=== PATIENT | female | born 1960 | race Caucasian/White ===

== ENCOUNTER 2018-08-03 05:03 | Emergency (ER) | payer SELFPAY ==
[2018-08-03 05:04] VITALS: BP 170/98; PULSE 67; RESP 18; TEMP 36.6; O2SAT 97; BMI 38.0
--- NOTE | 2018-08-03 05:16 | CT_ITS ---
HISTORY: FALL,HIT BACK OF HEAD,DENIES LOCHX:HTN TECHNIQUE: Multiple axial images were obtained of the brain without intravenous contrast. A radiation dose optimization technique was used for this scan. COMPARISON: None FINDINGS: # of images incl. paperwork: 238 Left parietal-occipital scalp contusion. Cerebellar tonsils are ectopic by 4 mm. Visualized portions of the paranasal sinuses and mastoid air cells are free of disease. Brain volume is normal. Yoo-white differentiation is preserved. No hydrocephalus. No acute ischemia. No acute intracranial hemorrhage. 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 Left parietal-occipital scalp contusion. No perceived intracranial hemorrhage or skull fracture ASPECT 10. Individualized dose optimization techniques were used for this CT. at 2381 Reported and signed by: Vishal Maldonado MD Electronically Signed: Vishal Maldonado MD at 5:40 EDT Tel , Service support ,
--- NOTE | 2018-08-03 05:48 | ED.VISSUMM ---
- ER Visit Summary Date of Service: 08/03/18 Chief Complaint: Head injury History of Present Illness: The patient is a 57 F who slipped and fell getting out of a camper on wet steps. She fell onto her buttocks and back and also hit the back of her head. She complains of pain at the site of the head injury. She denies any nausea or vomiting. There was no loss of consciousness. She denies any amnesia. She is not anticoagulated. She denies any chest pain shortness of breath abdominal pain or injury to extremities. Physical Examination: Afebrile blood pressure 170/98 vitals otherwise unremarkable Patient does have an occipital scalp hematoma Heart regular rate and rhythm Lungs clear Abdomen soft No midline cervical tenderness GCS of 15 with no focal or lateralizing neurological deficits alert and oriented x3 Test Results: CT the head shows cerebellar tonsillar ectopia as well as a left parietal occipital scalp contusion Emergency Department Course and Treatment: Patient was advised on symptoms of concussion. She was advised on brain rest. She understands return for new or worsening symptoms and was instructed on specific signs and symptoms to monitor for and conditions which should prompt return here to the emergency department for reevaluation. All questions answered bedside. Patient discharged. Treatment Plan: [] Disposition: Discharge Impression: Head injury Scalp hematoma This note was generated with [employer] dictation software. It may contain incorrect words, spelling, and punctuation that were not noted in review of the chart prior to signing ED Disposition - Plan for ED Patient: Referrals: Roscoe Moraes [Primary Care Provider] -
--- NOTE | 2018-08-03 05:50 | ED.DEP ---
ED Disposition - Plan for ED Patient: Instructions: ED Contusion Scalp, ED Head Injury Closed Referrals: Roscoe Moraes [Primary Care Provider] -
[2018-08-03 05:56] VITALS: BP 162/72; PULSE 80; RESP 16; O2SAT 97
== END 2018-08-03 05:56 | disposition home or self-care (01) ==
LOC: ED 05:35
PROVIDERS: Emergency Provider Emergency Medicine; Family Provider Family Medicine; PCP Family Medicine
DX: S00.03XA Contusion of scalp, initial encounter (principal); R40.2410 Glasgow coma scale score 13-15, unspecified time; W01.0XXA Fall on same level from slipping, tripping and stumbling without subsequent striking against object, initial encounter; Y93.9 Activity, unspecified; Y92.9 Unspecified place or not applicable; I10 Essential (primary) hypertension; Z79.899 Other long term (current) drug therapy
CPT/HCPCS: 70450; 99282

== ENCOUNTER 2019-08-30 09:50 | Observation (INO) | payer OTHER, SELFPAY ==
[2019-08-30] VITALS (13 sets, daily range): BP systolic 110–141; BP diastolic 68–87; PULSE 65–73; RESP 11–29; TEMP 36.2–37.1; O2SAT 92–97; BMI 36.1; BMI 36.0
--- NOTE | 2019-08-30 10:30 | EKG12_ITS ---
Test Reason : NEURO Blood Pressure : / mmHG Vent. Rate : 075 BPM Atrial Rate : 075 BPM P-R Int : 160 ms QRS Dur : 092 ms QT Int : 408 ms P-R-T Axes : 062 031 015 degrees QTc Int : 455 ms Normal sinus rhythm T wave abnormality, consider anterior ischemia Abnormal ECG Confirmed by SUDHEER ROBERT, CASA ([id number]), editorial clerk SILVIO PAIGE ([id number]) on 09/02/2019 8:26:37 AM Referred By: FAM Confirmed By:CASA WILLARD MD
--- NOTE | 2019-08-30 10:31 | CT_ITS ---
STUDY: CTA HEAD AND NECK WITH CONTRAST REASON FOR EXAM: Female, 58 years old. STROKE RADIATION DOSAGE (If Supplied By Facility): CTDIvol = ( 17.78 ) mGy, DLP = ( 643.16 ) mGycm TECHNIQUE: CT angiography was performed with a multi-detector CT scanner. Data acquisition was obtained from the skull base through the vertex following intravenous administration of 100 CC ISOVUE 370. MIP images were reconstructed from the axial data set. Post-processing of the angiographic images was performed, with multiplanar reformation and 3D reconstruction. Individualized dose optimization techniques were used for this CT. COMPARISON: No relevant priors. FINDINGS: Normal bilateral petrous carotid arteries. Normal right cavernous carotid artery with a normal supraclinoid bifurcation. Normal left cavernous carotid artery with a normal supraclinoid bifurcation. Normal right A1 segments of the anterior cerebral artery. Normal left A1 segments of the anterior cerebral artery. Normal intact anterior communicating artery (ACOM). Normal bilateral A2 segments of the anterior cerebral arteries. Normal right M1 and M2 segments of the middle cerebral arteries, with a normal M1 bifurcation. Normal left M1 and M2 segments of the middle cerebral arteries, with a normal M1 bifurcation. Normal right posterior communicating artery (PCOM). Normal left posterior communicating artery (PCOM). Normal bilateral vertebral arteries. Normal basilar artery with a normal basilar bifurcation. The visualized bilateral superior cerebellar (SCA) arteries are normal. Normal bilateral P1, P2 and visualized P3 segments of the posterior cerebral arteries. There is no demonstrated aneurysm of the [place]. There is no demonstrated abnormality of the visualized brain. AORTIC ARCH: Normal visualized aortic arch. Normal origins of the brachiocephalic, left common carotid, and left subclavian arteries. RIGHT CAROTID ARTERIES: Normal right common carotid artery (CCA). Normal right common carotid bulb. Normal origin of the right internal carotid (ICA) artery without a hemodynamically significant stenosis. Normal visualized cervical portion of the right internal carotid artery. Normal origin of the right external carotid artery (ECA). LEFT CAROTID ARTERIES: Normal left common carotid artery (CCA). Normal left common carotid bulb. Normal origin of the left internal carotid (ICA) artery without a hemodynamically significant stenosis. Normal visualized cervical portion of the left internal carotid artery. Normal origin of the left external carotid artery (ECA). VERTEBRAL ARTERIES: Normal bilateral vertebral arteries. CT/CTA Head AND Neck W/ Contrast IMPRESSION: Normal CTA Head and neck with contrast. N.B. : The above information has been verbally conveyed by Hernando Roy to [facility] on 08/30/2019 10:50:13 (ET). Electronically Signed: Hernando Roy, at 10:51 EDT , Service support ,
--- NOTE | 2019-08-30 10:34 | CT_ITS ---
STUDY: CT BRAIN WITHOUT CONTRAST REASON FOR EXAM: Female, 58 years old. STROKE, FACIAL DROOP RADIATION DOSAGE (If Supplied By Facility): CTDIvol = ( 44.99 ) mGy, DLP = ( 678.0 ) mGycm TECHNIQUE: Transaxial CT imaging of the brain was performed without administration of intravenous contrast material. Individualized dose optimization techniques were used for this CT. COMPARISON: Comparison is made with prior study dated August 03, 2018. FINDINGS: Normal soft tissue structures. Normal calvarium. Normal size ventricles and extra-axial spaces for the patient''s age. Normal white matter tracts of the cerebral hemispheres. Normal basal ganglia and thalami. Normal brainstem. Normal cerebellum. There is no intracranial hemorrhage. There are no findings of an acute ischemic infarction. Normal visualized paranasal sinuses. CT/Brain/Head without Contrast IMPRESSION: Normal unenhanced CT scan of the brain. N.B. : The above information has been verbally conveyed by Hernando Roy to [facility] on 08/30/2019 10:47:06 (ET). Electronically Signed: Hernando Roy, at 10:49 EDT , Service support ,
--- NOTE | 2019-08-30 10:36 | ED.DCSUM_ITS ---
History of Present Illness Chief Complaint: Neuro S/Sx Informant: Patient, Family Onset: Today, Yesterday Current Severity: Moderate Maximum Severity: Moderate Narrative: 58-year-old female presents with facial droop on the left. She states that she felt a little off last night before bed. Upon awakening this morning at 0 700 she noticed that she had a facial droop. She had trouble drinking liquids. She went to urgent care who felt that she probably had a Baron's palsy but wanted her to be seen in the ER just in case. She has no visual loss. She has no symptoms in her arms or legs. She is not dizzy or lightheaded. Her mentation is clear. Prior similar symptoms: No Recent Illness/Hospitalization: No Past Medical History - Allergies and Home Meds Allergies/Adverse Reactions: Allergies No Known Allergies Allergy (Verified 08/30/19 09:54) Past Medical History: - - hypertension Smoking Status: Never smoker - Family History Maternal Family History: Reports: No pertinent history Paternal Family History: Reports: No pertinent history Review of Systems General: Denies: Chills, Fever Eyes: Denies: Visual changes - left, Blurred vision - left ENT: Denies: Bilateral ear pain, Left ear pain Cardiovascular: Denies: Chest pain Respiratory: Denies: Dyspnea, Cough Gastrointestinal: Denies: Abdominal pain, Nausea, Vomiting Musculoskeletal: Denies: Myalgias, Arthralgias Skin: Reports: Rash - reolved Neurological: Reports: -, - - Facial droop on the left Physical Exam Vital Signs/Narrative: Vital Signs Temp Pulse Resp BP Pulse Ox 08/30/19 09:52 97.2 F L 68 18 141/81 H 97 Inital Vital Signs reviewed: Yes General: Well nourished, Well developed, No Acute Distress Head: Normocephalic, Atraumatic Eyes: Perrl, EOMI ENT: Moist mucous membranes Cardiovascular: Regular rate, Regular rhythm Respiratory: No distress, CTA bilaterally Abdomen: Soft, Nontender Extremities: Nontender Skin: Normal color Neurological: Alert, Oriented x3, Left side facial droop, - - NIH = 2 Psychological: Normal affect Diagnostic/Tx/Re-eval Chest X-Ray - ED: [address] brain: Negative for acute process. CTA head and neck negative for acute process. - Medical Decision Making Presents with left-sided facial droop. Last known well was the evening of 4. She has no signs or symptoms in her extremities. Her mentation is clear. Patient is not affected. On exam she does have left-sided facial droop without sparing of the forehead. She had CT brain which was normal. Her EKG is sinus rhythm without signs of ischemia. She is not having any chest pain. Chest x- ray is normal. Blood work within normal limits. performed tele-stroke and recommended admission for MRI. Hospitalist was notified. Patient passed swallow evaluation and had aspirin in the ED. Patient stable for the medical floor. ED Disposition - Plan for ED Patient: Disposition: Acute Care Hospital [facility] Diagnosis: Stroke
--- NOTE | 2019-08-30 10:47 | CM.ED ---
Social Work Responding to stroke alert. Patient family present. Support provided. Aundrea FLOR, SIXTO
--- NOTE | 2019-08-30 10:50 | RAD_ITS ---
STUDY: X-RAY CHEST REASON FOR EXAM: Female, 58 years old. Pt states facial droop started today TECHNIQUE: Single AP portable view of the chest. COMPARISON: Comparison is made with prior study dated September 02, 2009. FINDINGS: EKG electrodes are seen. The lungs are clear and expanded. There is no demonstrated pleural abnormality. Normal size heart. Normal mediastinum and rosa. Normal visualized pulmonary arteries. Normal visualized aortic arch and descending thoracic aorta. Normal visualized thoracic spine. Normal visualized ribs, clavicles, and shoulders. There is no demonstrated abnormality of the visualized soft tissue structures of the upper abdomen. RAD/Chest 1 View IMPRESSION: Normal x-ray examination of the chest. Electronically Signed: Hernando Roy, at 11:41 EDT , Service support ,
[2019-08-30 11:01] LABS: Absolute Lymphocyte Count 0.99 X10^3/uL (0.83-4.51); Absolute Neutrophil Count 4.6 X10^3/uL (2.0-7.7); Basophil# 0.02 X10^3/uL; Basophil% 0.3 % (0-1); Eosinophils% 1.7 % (0-5); Hematocrit 35.5 % (37-47); Lymphocyte # 0.99 X10^3/ul (4.0); Lymphocyte % 16.4 % (19-41); Mean Corpuscular Hgb 29.6 pg (27.0-32.0); Mean Corpuscular Volume 95.4 fL (81-99); Mean Platelet Vol. 10.4 fl (6.2-12.0); Monocyte# 0.28 X10^3/uL; Monocyte% 4.6 % (0-10); NRBC Flagged by Analyzer 0 % (0-5); Neutrophil # 4.64 X10^3/uL (2.7-7.7); Neutrophil % 76.7 % (47-70); Platelet Count 159 K/mm3 (150-450); RBC Distribution Width SD 48.8 fl (35.1-43.9); Red Blood Count 3.72 M/mm3 (4.2-5.4); White Blood Count 6.1 K/mm3 (4.4-11.0)
[2019-08-30 11:09] LABS: International Normalized Ratio 1.1; Partial Thromboplast Time 29.4 Seconds (24.1-36.2); Prothrombin Time (Protime)PT. 13.8 SECONDS (11.7-14.9)
[2019-08-30 11:16] LABS: Bedside Glucose 92 mg/dL (70-110)
[2019-08-30] MEDS: Aspirin 81 MG TAB.CHEW 324 MG PO (11:17)
[2019-08-30 11:22] LABS: Anion Gap 3 (5-15); BUN 14 mg/dL (7-18); BUN/Creat Ratio 19.6 RATIO (10-20); Calcium,Total 8.1 mg/dL (8.5-10.1); Chloride 107 mmol/L (98-107); Creatinine, Serum 0.72 mg/dL (0.55-1.02); EST Glomerular Filtration Rate 89 mL/min (>60); Est Glom Filt Rate - Afr Amer 108 mL/min (>60); Estimated Creatinine Clearance 65.05 ml/min; Glucose 84 mg/dL (74-106); Potassium 3.9 mmol/L (3.5-5.1); Sodium Level 138 mmol/L (136-145)
--- NOTE | 2019-08-30 11:58 | HP.PCM_ITS ---
Problem List (1) Anxiety Status: Chronic (2) Hypertension Status: Chronic History of Present Illness Date of Admission: 08/30/19 Chief Complaint: Left facial droop. The patient is a 58 year old F with past medical history as mentioned above presented to the emergency room because of left facial droop. Patient mentioned that last night, she felt that her face not feeling right on the left side. She woke up this morning and she mentioned that when she looked at the mirror, she noticed that that the left side of her face is drooping and not going up when she smiles and she was not able to get the words out correctly. She mentioned that she had trouble drinking liquids as well. She reported associated left- sided headache, mild headache. She denied blurred vision, vision loss, numbness or tingling, denied focal arm or leg weakness. She denied ear symptoms. Today, she went to urgent care and she was informed that probably she has Baron's palsy but was instructed to come to the emergency department. Patient's mentioned that she had a history of mitral valve prolapse. The patient herself mentioned that she had cardiac catheterization years ago that was done for irregular heartbeats, no interventions performed at that time. In the emergency department, her vital signs are stable. Her NIH stroke scale was 2. Her routine blood work was unremarkable. SOC tele-neuro consult obtained. CT scan brain showed no acute infarct or hemorrhage. CTA of the head and neck was normal. EKG revealed normal sinus rhythm, normal MA interval, QTC of 455 ms, low voltage, no acute changes. Chest x-ray showed no acute findings. She is being admitted for evaluation for possible stroke. Past Medical History Past Medical History (Chronic Problems): Chronic Problems Nephrolithiasis (Chronic) Anxiety (Chronic) Hypertension (Chronic) Allergies No Known Allergies Allergy (Verified 08/30/19 09:54) Home Medications: Ambulatory Orders Medication Instructions Recorded Atenolol [Tenormin] 100 mg PO DAILY 08/03/18 Lisinopril 5 mg PO DAILY 08/03/18 Paroxetine HCl [Paxil] 10 mg PO DAILY 08/03/18 Surgical History: - - Kidney stone removal. 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 Lives: Spouse/ Significant Other Smoking Status: Never smoker Alcohol: None Drugs: None - *Family History Maternal History Items: No pertinent history Paternal History Items: No pertinent history Review of Systems Constitutional: Denies: Anorexia, Chills, Fever, Weakness Eyes: Denies: Blurred vision, Double vision, Drainage, Vision Change HEENT: Denies: Difficulty Hearing, Dysphasia, Eye Pain, Nasal Congestion, Sore Throat Cardiovascular: Denies: Chest Pain, Chest Pressure, Edema, Heaviness, Light Headedness, Palpitations, Syncope Respiratory: Denies: Cough, Pleuritic Pain, Shortness of Breath, Sputum production, Wheezing Gastrointestinal: Denies: Abdominal Pain, Constipation, Diarrhea, Nausea, Vomiting Genitourinary: Denies: Dysuria, Frequency, Hematuria Musculoskeletal: Denies: Arm Pain, Back Pain, Foot Pain Skin: Denies: Dryness, Rash Neurological: Reports: Change in Speech, Headaches. Denies: Balance problems, Blurred vision, Confusion, Numbness, Tingling Psychiatric: Reports: Anxiety. Denies: Depression Endocrine: Denies: Change in Body Habitus, Polydipsia, Polyuria VTE Information - Inpt Only VTE Present on Admission: No VTE Mechan Device Prophylaxis: None VTE Pharm Prophylaxis ordered?: Yes - Physical Exam Vitals/I&O's: Vital Signs Temp Pulse Resp BP Pulse Ox 98.7 F 65 16 110/82 H 95 08/30/19 11:48 08/30/19 11:48 08/30/19 11:48 08/30/19 11:48 08/30/19 11:48 Oxygen Delivery Method Room Air Weight: 191 lb 5.78 oz Body Mass Index (BMI) 36.1 Finger Stick Blood Glucose 92 General: Alert, Oriented x3, Cooperative, No apparent distress HEENT: Atraumatic, PERRLA, EOMI, Normocephalic Oral: Moist Mucosa, No Gingival or Mucosal Lesions/ Ulcerations Neck: Supple, No JVD, Negative Carotid Bruits, Trachea Midline, Thyroid Normal Size and Texture Lungs: Clear to auscultation, Normal air movement, No rhonchi, No wheeze, No rales Cardiovascular: Regular rate, Regular Rhythm, Normal S1, Normal S2, No murmurs, PMI Normal Abdomen: Bowel Sounds Present, Soft, Non Tender, Non-Distended, No Hepato- splenomegaly Extremities: No clubbing, No cyanosis, No edema Skin: No rashes, No breakdown Lymphatic: No Cervical, Supraclavicular, or Inguinal Adenopathy Neurological: Cranial nerves II-XII grossly intact, Motor Exam 5/5 strength throughout, Facial Droop - Left facial droop. Psych/Mental Status: Normal Affect, Appropriate, Alert and oriented to time, place, person, mood and affect Laboratory Results 08/30/19 10:18: POC Glucose 92 08/30/19 10:50: WBC 6.1, RBC 3.72 L, Hgb 11.0 L, Hct 35.5 L, MCV 95.4, MCH 29.6, MCHC 31.0 L, RDW Std Deviation 48.8 H, RDW Coeff of Daniel 14.0, Plt Count 159, MPV 10.4, Immature Gran % (Auto) 0.300, Neut % (Auto) 76.7 H, Lymph % (Auto) 16.4 L, Baker % (Auto) 4.6, Eos % (Auto) 1.7, Baso % (Auto) 0.3, Absolute Neuts (auto) 4.6, Absolute Lymphs (auto) 0.99, Nucleated RBC % 0 08/30/19 10:50: PT 13.8, INR 1.1, APTT 29.4 08/30/19 10:50: Sodium 138, Potassium 3.9, Chloride 107, Carbon Dioxide 28.0, An ion Gap 3 L, BUN 14, Creatinine 0.72, Estim Creat Clear Calc 65.05, Est GFR (MDRD) Af Amer 108, Est GFR (MDRD) Non-Af 89, BUN/Creatinine Ratio 19.6, Glucose 84, Calcium 8.1 L, Troponin I < 0.015 Clinical Impression(s) from Imaging Studies Head/Neck CTA 08/30/19 10:31 IMPRESSION: Normal CTA Head and neck with contrast. N.B. : The above information has been verbally conveyed by Hernando Roy to SPENCER NUNO on 08/30/2019 10:50:13 (ET). Electronically Signed: Hernando Roy, at 10:51 EDT , Service support , ADDENDUM: 08/30/19 1058 IMPRESSION: Normal CTA Head and neck with contrast. N.B. : The above information has been verbally conveyed by Hernando Roy to [facility] on 08/30/2019 10:50:13 (ET). Electronically Signed: Hernando Roy, at 10:51 EDT , Service support , Brain CT 08/30/19 10:34 IMPRESSION: Normal unenhanced CT scan of the brain. N.B. : The above information has been verbally conveyed by Hernando Roy to [facility] on 08/30/2019 10:47:06 (ET). Electronically Signed: Hernando Roy, at 10:49 EDT , Service support , ADDENDUM: 08/30/19 1056 IMPRESSION: Normal unenhanced CT scan of the brain. N.B. : The above information has been verbally conveyed by Hernando Roy to [facility] on 08/30/2019 10:47:06 (ET). Electronically Signed: Hernando Roy, at 10:49 EDT , Service support , Chest X-Ray 08/30/19 10:50 IMPRESSION: Normal x-ray examination of the chest. Electronically Signed: Hernando Roy at 11:41 EDT , Service support , Current Medications Sodium Chloride 1,000 ml/ N/A 1,000 mls @ 260.4 mls/hr IV .Q3H51M [place] Stop: 08/30/19 17:31 Last Admin: 08/30/19 11:09 Dose: 3 ml/kg/hr, 260.4 mls/hr Documented by: Assessment/Plan This is a 58 years old female patient presented to the emergency room because of left facial droop and she is being admitted for evaluation for possible stroke. #1 left facial droop: With minimal slurred speech, back to normal. Differential diagnoses include Baron's palsy versus acute stroke. She had no other focal deficit. CT scan brain and CTA head and neck reviewed as above, was unremarkable. EKG revealed normal sinus rhythm, low voltage, no acute changes. Her vital signs are stable. Plan: Admit to PCU for observation, cardiac monitoring, NIH stroke scale, start baby aspirin, Lipitor, MRI brain, 2D echocardiogram, fasting lipid profile, hemoglobin A1c, TSH, PT OT evaluation and treatment, speech therapy evaluation and treatment. #2 hypertension: Blood pressure stable, continue atenolol and lisinopril. #3 anxiety: Continue Paxil. #4 DVT prophylaxis, subcu Lovenox. This note was generated with [employer] dictation software. It may contain incorrect words, spelling, and punctuation that were not noted in checking the note before signing. OBSV E&M: [id number] Initial observation care L2
--- NOTE | 2019-08-30 14:06 | MRI_ITS ---
STUDY: MRI BRAIN WITHOUT CONTRAST REASON FOR EXAM: Female, 58 years old. Left facial droop TECHNIQUE: Standardized multiplanar fat and water weighted pulse sequences were obtained. COMPARISON: CT head August 30, 2019 FINDINGS: There is no acute infarct. Brain parenchyma is intact without focal lesions, mass effect, extra parenchymal fluid collections, hydrocephalus or herniation. Major vascular flow structures are intact. Craniocervical junction is unremarkable. MRI/Brain without Contrast IMPRESSION: 1. Unremarkable brain MRI. No acute infarct. Electronically Signed: Tank Bull, at 15:49 EDT Tel , Service support ,
--- NOTE | 2019-08-30 14:06 | ECHOD_ITS ---
Reason For Study: TIA/CVA Procedure This was a 2D Doppler, Color Flow transthoracic echocardiogram. Exam performed portable in patient room. Left Ventricle Normal LV size. Left ventricular systolic function is normal. The estimated ejection fraction is 55 %. Stage 1 diastolic dysfunction. No regional wall motion abnormalities noted. Right Ventricle Normal RV size. Normal systolic function. Atria Normal left atrium. Normal right atrium. Bubble contrast study negative for right to left interatrial shunt. Mitral Valve Normal mitral valve. Mild (1+) eccentric mitral valve insufficiency. Tricuspid Valve Normal tricuspid valve. Pulmonic Valve Normal pulmonic valve. Great Vessels Normal aortic root. The pulmonary artery is normal size. Normal inferior vena cava. Pericardium/Pleural No pericardial effusion. Medication Performed a rapid injection of agitated mix of 9 cc saline and 1cc air to assess for atrial septal defect. MMode/2D Measurements & Calculations LVIDd: 5.4 cm IVSd: 0.89 cm Ao root diam: 2.7 cm LVIDs: 3.3 cm LVPWd: 1.0 cm RVDd: 2.8 cm FS: 38.0 % LAV(MOD-bp): 41.9 ml LVAd ap4: 21.4 cm2 SV(MOD-sp4): 35.8 ml LAV(MOD-bp) Indexed: 22.6 ml/m2 EDV(MOD-sp4): 61.3 ml LAV(MOD-sp2): 39.0 ml EDV(sp4-el): 62.3 ml LAV(MOD-sp4): 41.9 ml LVAs ap4: 12.3 cm2 ESV(MOD-sp4): 25.4 ml ESV(sp4-el): 25.9 ml EF(MOD-sp4): 58.5 % EF(sp4-el): 58.5 % SV(sp4-el): 36.5 ml LA A4 area: 16.3 cm2 LA dimension(2D): 3.9 cm RA A4 area: 13.2 cm2 Doppler Measurements & Calculations MV E max yong: 74.7 cm/sec Lat Peak E' Yong: 5.6 cm/sec Med Peak E' Yong: 5.6 cm/sec MV A max yong: 82.5 cm/sec E/E' lat: 13.3 E/E' med: 13.3 MV E/A: 0.91 Ao V2 max: 127.7 cm/sec LV V1 max: 90.9 cm/sec PA V2 max: 73.3 cm/sec Ao max P.5 mmHg LV V1 max P.3 mmHg Ao V2 mean: 98.9 cm/sec Ao mean P.1 mmHg Ao V2 VTI: 29.9 cm Interpretation Summary Normal LV size. Left ventricular systolic function is normal. The estimated ejection fraction is 55 %. Stage 1 diastolic dysfunction. Bubble contrast study negative for right to left interatrial shunt. Ordering Physician: Ivette Pimentel Referring Physician: Roscoe Moraes Performed By: Trena Brewer, VINCENZO, RVT
--- NOTE | 2019-08-30 14:28 | ED.RN ---
VERBAL ORDER TO DC NIH GIVEN BY DR. NUNO TO THIS NURSE. NIH INTERVENTION WAS COMPLETED IN THE WORKLIST AT THAT TIME, NO FURTHER NIH CONDUCTED. CONTINUED TO MONITOR PATIENT STATUS.
[2019-08-30 15:13] LABS: Hemoglobin A1c 5.9 % (3.8-5.6)
[2019-08-30 15:24] LABS: Thyroid Stim Hormone (TSH) 1.23 uIU/mL (0.358-3.74)
[2019-08-30] MEDS: 0.9% Normal Saline 1,000 ML 75 ML IV (15:41)
[2019-08-30] MEDS: Atorvastatin Calcium 80 MG Tablet PO (21:49)
[2019-08-30] MEDS: Acetaminophen 325 MG Tablet 650 MG PO (21:49)
[2019-08-31 03:00] VITALS: PULSE 66
[2019-08-31 03:52] VITALS: BP 120/70; PULSE 68; RESP 18; TEMP 36.6; O2SAT 95
[2019-08-31 07:00] VITALS: PULSE 65
[2019-08-31 08:31] LABS: Cholesterol 126 mg/dL (200); High Density Lipoprotein 28 mg/dL; Triglycerides 198 mg/dL; Very Low Density Lipoprotein 40 mg/dL (5-40)
[2019-08-31 09:50] VITALS: BP 109/71; PULSE 75; RESP 16; TEMP 36.4; O2SAT 97
[2019-08-31] MEDS: 0.9% Saline Lock 10 ML Syringe IV (09:56)
[2019-08-31] MEDS: Atenolol 100 MG Tablet PO (09:58)
[2019-08-31] MEDS: Lisinopril 5 MG Tablet PO (09:58)
[2019-08-31] MEDS: Aspirin 81 MG TAB.CHEW PO (09:58)
[2019-08-31] MEDS: PARoxetine 10 MG Tablet PO (09:59)
--- NOTE | 2019-08-31 10:04 | DCINST_ITS ---
- Discharge Diagnoses Current Active Problems: Current Active and Chronic Problems Stroke (Acute) You will use the following diet at home:: Cardiac Your food should be the consistency of: Regular Discharge Activity: Return to Normal Activity Weight Bearing Status: Weight bearing as tolerated Call your doctor if you observe: Fever of 101 or Higher, Shortness of breath, Dizziness, Fainting spells, Chest pain, Increased palpitations (irregular heartbeat), Uncontrolled pain Instructions: ED [place] Palsy Allergies/Adverse Reactions: Allergies No Known Allergies Allergy (Verified 08/30/19 09:54) Medications to take at Discharge Atenolol [Tenormin] 100 mg PO DAILY 08/03/18 Lisinopril 5 mg PO DAILY 08/03/18 Paroxetine HCl [Paxil] 10 mg PO DAILY 08/03/18 Acyclovir 400 mg PO 5X/DAY #50 tab 08/31/19 Prednisone [Deltasone] 60 mg PO DAILY #30 tab 08/31/19 The following prescriptions were given: Acyclovir 400 mg PO 5X/DAY #50 tab Transmission Status: Pending to [facility]/pharmacy #[id number] Prednisone [Deltasone] 60 mg PO DAILY #30 tab Transmission Status: Pending to [facility]/pharmacy #[id number] Primary Care Physician: Roscoe Moraes MD [Primary Care Provider] - Please follow up with your Primary Care Physician in: 1 week. Test Results: Test results from this visit will be discussed in further detail at your follow- up appointment, if applicable.
[2019-08-31 11:00] VITALS: PULSE 66
[2019-08-31 11:25] VITALS: BP 109/71; PULSE 75; RESP 16; TEMP 36.4; O2SAT 97
[2019-08-31] MEDS: Acyclovir 200 MG Capsule 400 MG PO (11:34)
[2019-08-31] MEDS: predniSONE 20 MG Tablet 80 MG PO (11:34)
--- NOTE | 2019-08-31 11:40 | PCM.DC.SUM ---
Discharge Date and Diagnosis - Problem List Patient Problems: Active and Suspected Problems Baron's palsy (Acute) Date of Admission: 08/30/19 Date of Discharge: 08/31/19 - Primary Discharge Diagnosis Acute Problems: Active Problems #1 Baron's palsy. - Secondary Discharge Diagnosis Chronic Problems: Chronic Problems Nephrolithiasis (Chronic) Anxiety (Chronic) Hypertension (Chronic) Hospital Course and Treatment Imaging Results: Clinical Impression(s) from Imaging Studies Head/Neck CTA 08/30/19 10:31 IMPRESSION: Normal CTA Head and neck with contrast. N.B. : The above information has been verbally conveyed by Hernando Roy to SPENCER NUNO on 08/30/2019 10:50:13 (ET). Electronically Signed: Hernando Roy, at 10:51 EDT , Service support , ADDENDUM: 08/30/19 1058 IMPRESSION: Normal CTA Head and neck with contrast. N.B. : The above information has been verbally conveyed by Hernando Roy to SPENCER NUNO on 08/30/2019 10:50:13 (ET). Electronically Signed: Hernando Roy, at 10:51 EDT , Service support , Brain CT 08/30/19 10:34 IMPRESSION: Normal unenhanced CT scan of the brain. N.B. : The above information has been verbally conveyed by Hernando Roy to SPENCER NUNO on 08/30/2019 10:47:06 (ET). Electronically Signed: Hernando Roy at 10:49 EDT , Service support , ADDENDUM: 08/30/19 1056 IMPRESSION: Normal unenhanced CT scan of the brain. N.B. : The above information has been verbally conveyed by Hernando Roy to SPENCER NUNO on 08/30/2019 10:47:06 (ET). Electronically Signed: Hernando Roy, at 10:49 EDT , Service support , Chest X-Ray 08/30/19 10:50 IMPRESSION: Normal x-ray examination of the chest. Electronically Signed: Hernando Roy, at 11:41 EDT , Service support , Brain MRI 08/30/19 14:06 IMPRESSION: 1. Unremarkable brain MRI. No acute infarct. Electronically Signed: Pricillamaxi Jorgito, at 15:49 EDT Tel , Service support , SOC tele-neurology consult. Procedures: 2-D Echocardiogram, EKG Summary of Care Provided: Patient seen and examined on the day of discharge and appeared to be stable to be discharged home. Still having left facial droop. No new symptoms. Her vital signs are stable. The patient is a 58 year old F presented to the emergency room because of left facial droop. Apart from left lower face facial droop, patient had no other focal deficits. She had no ptosis. Initial CT scan brain without contrast showed no acute infarct or hemorrhage. CTA of the head and neck was normal and showed no evidence of hemodynamically significant vascular disease or stenosis. Patient was admitted, started on aspirin and statins. Her routine blood work was unremarkable. Her EKG revealed normal sinus rhythm without evidence of acute segment changes. Troponin was negative. She had MRI done that showed no evidence of acute infarct or hemorrhage. 2D echocardiogram revealed ejection fraction 55%, stage I diastolic dysfunction, bubble contrast study negative for right to left shunt. Acute stroke ruled out. Her symptoms attributed to Baron's palsy. Patient mentioned that she was bitten by some insects 2 months ago and she had skin rash. Since then, she has been having headaches. She is worried about Lyme disease. I informed the patient that Lyme disease is unlikely at this point but cannot be ruled out. I did ordered Lyme IgG, IgM and Lyme total antibodies which are pending at the time of discharge. At this time, I doubt that her symptoms are due to Lyme disease. Her vital signs were stable throughout admission. She was started on prednisone 60 mg p.o. daily as well as acyclovir 400 mg p.o. 5 times a day. Patient discharged home on prednisone 60 mg p.o. daily for 10 days, acyclovir 400 mg p.o. 5 times a day for 10 days, continued on her previous home medications without any changes, recommended follow-up with PCP in 1 to 2 weeks. Patient Problems: Active and Suspected Problems Baron's palsy (Acute) - Physical Exam Vitals/I&O's: Vital Signs Temp Pulse Resp BP Pulse Ox 97.6 F L 75 16 109/71 97 08/31/19 11:25 08/31/19 11:25 08/31/19 11:25 08/31/19 11:25 08/31/19 11:25 Oxygen Delivery Method Room Air Weight: 190 lb 11.2 oz Body Mass Index (BMI) 36.0 Finger Stick Blood Glucose 92 Intake and Output for Last 24 Hours 08/29/19 08/30/19 08/31/19 23:59 23:59 23:59 Intake Total 1480 / 1480 1120 / 1120 Output Total 1250 / 1250 750 / 750 Balance 230 / 230 370 / 370 General: Alert, Oriented x3, Cooperative, No apparent distress HEENT: Atraumatic, PERRLA, EOMI, Normocephalic Oral: Moist Mucosa, No Gingival or Mucosal Lesions/ Ulcerations Neck: Supple, No JVD, Negative Carotid Bruits, Trachea Midline, Thyroid Normal Size and Texture Lungs: Clear to auscultation, Normal air movement, No rhonchi, No wheeze, No rales Cardiovascular: Regular rate, Regular Rhythm, Normal S1, Normal S2, PMI Normal Abdomen: Bowel Sounds Present, Soft, Non Tender, Non-Distended, No Hepato-splenomegaly Extremities: No clubbing, No cyanosis, No edema Skin: No rashes, No breakdown Lymphatic: No Cervical, Supraclavicular, or Inguinal Adenopathy Neurological: Cranial nerves II-XII grossly intact, Motor Exam 5/5 strength throughout, - - Left facial droop. Psych/Mental Status: Normal Affect, Appropriate Laboratory Results 08/30/19 10:50: Hemoglobin A1c 5.9 H 08/30/19 10:50: TSH 1.23 08/31/19 05:35: Triglycerides 198, Cholesterol 126, LDL Cholesterol 58, VLDL Cholesterol 40, HDL Cholesterol 28 L 08/31/19 09:25: Lyme IgG W Blot Interp Pending, Lyme IgM Ab (WB) Pending, Lyme Total Antibody Pending Current Medications Acetaminophen (Tylenol) 650 mg PO Q6H PRN PRN PRN Reason: Pain Score 1-10/Temp > 100.7 F Last Admin: 08/30/19 21:49 Dose: 650 mg Documented by: Aspirin (Aspirin, Baby) 81 mg PO DAILY@0800 [facility] Last Admin: 08/31/19 09:58 Dose: 81 mg Documented by: Atenolol (Tenormin (Beta Mariaelena)) 100 mg PO DAILY [facility] Last Admin: 08/31/19 09:58 Dose: 100 mg Documented by: Atorvastatin Calcium (Lipitor) 80 mg PO QHS [facility] Last Admin: 08/30/19 21:49 Dose: 80 mg Documented by: Enoxaparin Sodium (Lovenox) 40 mg SC DAILY [facility] Last Admin: 08/31/19 10:01 Dose: Not Given Documented by: Lisinopril (Zestril) 5 mg PO DAILY [facility] Last Admin: 08/31/19 09:58 Dose: 5 mg Documented by: Ondansetron HCl (Zofran) 4 mg IV Q8H PRN PRN PRN Reason: NAUSEA/VOMITING Paroxetine HCl (Paxil) 10 mg PO DAILY [facility] Last Admin: 08/31/19 09:59 Dose: 10 mg Documented by: Sodium Chloride () 10 - 40 ml IV UD PRN PRN Reason: SALINE FLUSH Last Admin: 08/31/19 09:56 Dose: 10 ml Documented by: Zolpidem Tartrate (Ambien (Generic)) 5 mg PO QHS PRN PRN PRN Reason: INSOMNIA Discharge Activity: Return to Normal Activity Weight Bearing Status: Weight bearing as tolerated Call your doctor if you observe: Fever of 101 or Higher, Shortness of breath, Dizziness, Fainting spells, Chest pain, Increased palpitations (irregular heartbeat), Uncontrolled pain Home Medications: Medications to take at Discharge Atenolol [Tenormin] 100 mg PO DAILY 08/03/18 Lisinopril 5 mg PO DAILY 08/03/18 Paroxetine HCl [Paxil] 10 mg PO DAILY 08/03/18 Acyclovir 400 mg PO 5X/DAY #50 tab 08/31/19 Prednisone [Deltasone] 60 mg PO DAILY #30 tab 08/31/19 Following Prescrptions Were Given to Patient: Acyclovir 400 mg PO 5X/DAY #50 tab Transmission Status: Received by [id number] Prednisone [Deltasone] 60 mg PO DAILY #30 tab Transmission Status: Received by [facility] #[id number] Primary Care Physician: Roscoe Moraes MD [Primary Care Provider] - Please follow up with your Primary Care Physician in: 1 week. Patient Instructions: ED [place] Palsy Disposition: Home Minutes spent on discharge:: 28 Patient Condition:: Stable Medical Necessity - Tobacco Use Smoking Status: Never smoker Meaningful Use Info Meaningful Use Diagnoses (Choose all that apply): None applicable OBSV E&M: 37518 Observation care discharge
[2019-09-09 03:06] LABS: Lyme IgG P18 Ab Present (.); Lyme IgG P23 Ab Present (.); Lyme IgG P28 Ab Absent (.); Lyme IgG P30 Ab Absent (.); Lyme IgG P39 Ab Present (.); Lyme IgG P41 Ab Present (.); Lyme IgG P45 Ab Absent (.); Lyme IgG P58 Ab Absent (.); Lyme IgG P66 Ab Absent (.); Lyme IgG P93 Ab Absent (.); Lyme IgM P23 Ab Present (.); Lyme IgM P39 Ab Present (.); Lyme IgM P41 Ab Present (.)
[2019-09-09 11:20] LABS: Lyme AB/Total Immuno 2.77 ISR (0.00-0.90); Lyme IgG WB Interpretation Negative (.); Lyme IgM WB Interpretation Positive (.)
== END 2019-08-31 10:04 | disposition home or self-care (01) ==
LOC: ED 11:09 → PCU 11:54
PROVIDERS: Admitting Provider Hospitalist; Emergency Provider Student in an Organized Health Care Education/Training Program; PCP Family Medicine; Visit Provider Hospitalist
DX: G51.0 Bell's palsy (principal); I10 Essential (primary) hypertension; Z79.899 Other long term (current) drug therapy; R29.702 NIHSS score 2; F41.9 Anxiety disorder, unspecified
CPT/HCPCS: 36415; 70450; 70496; 70498; 70551; 71045; 80048; 80061; 82962; 83036; 84443; 84484; 85025; 85610; 85730; 86617; 86618; 92610; 93005; 93306; 94762; 96360; 96361; 99218; 99285; J7030; Q9967; A4216; G0378

== ENCOUNTER → 2019-09-27 09:20 | Outpatient (CLI) | payer OTHER, SELFPAY ==
[2019-08-30 14:18] VITALS: BMI 36.0
[2019-10-05 03:06] LABS: Lyme IgG P18 Ab Present (.); Lyme IgG P23 Ab Present (.); Lyme IgG P28 Ab Absent (.); Lyme IgG P30 Ab Absent (.); Lyme IgG P39 Ab Present (.); Lyme IgG P41 Ab Present (.); Lyme IgG P45 Ab Present (.); Lyme IgG P58 Ab Present (.); Lyme IgG P66 Ab Present (.); Lyme IgG P93 Ab Absent (.); Lyme IgM P23 Ab Present (.); Lyme IgM P39 Ab Present (.); Lyme IgM P41 Ab Present (.)
[2019-10-06 01:17] LABS: Lyme IgG WB Interpretation Positive (.); Lyme IgM WB Interpretation Positive (.)
== END ==
PROVIDERS: PCP Family Medicine; Referring Provider Family Medicine; Visit Provider Family Medicine
DX: G51.0 Bell's palsy (principal)
CPT/HCPCS: 36415; 86617

== ENCOUNTER → 2020-01-14 10:02 | Outpatient (CLI) | payer OTHER, SELFPAY ==
[2019-08-30 14:18] VITALS: BMI 36.0
== END ==
PROVIDERS: PCP Family Medicine; Referring Provider Family Medicine; Visit Provider Family Medicine
DX: Z03.818 Encounter for observation for suspected exposure to other biological agents ruled out (principal)
CPT/HCPCS: 87635; C9803; U0003

== ENCOUNTER → 2020-04-10 11:32 | Outpatient (CLI) | payer OTHER, SELFPAY ==
[2019-08-30 14:18] VITALS: BMI 36.0
[2020-04-10 14:55] LABS: Absolute Lymphocyte Count 1.53 X10^3/uL (0.83-4.51); Absolute Neutrophil Count 3.8 X10^3/uL (2.0-7.7); Basophil# 0.03 X10^3/uL; Basophil% 0.5 % (0-1); Eosinophil# 0.11 X10^3/uL; Eosinophils% 1.9 % (0-5); Hematocrit 43.1 % (37-47); Hemoglobin 13.9 g/dL (12.0-15.0); Lymphocyte # 1.53 X10^3/ul (4.0); Lymphocyte % 25.9 % (19-41); Mean Corp Hgb Conc 32.3 g/dL (32-36); Mean Corpuscular Hgb 29.6 pg (27.0-32.0); Mean Corpuscular Volume 91.7 fL (81-99); Mean Platelet Vol. 11.1 fl (6.2-12.0); Monocyte# 0.42 X10^3/uL; Monocyte% 7.1 % (0-10); NRBC Flagged by Analyzer 0 % (0-5); Neutrophil % 64.4 % (47-70); Platelet Count 244 K/mm3 (150-450); RBC Distribution Width CV 13.9 % (11.6-14.6); RBC Distribution Width SD 47.2 fl (35.1-43.9); White Blood Count 5.9 K/mm3 (4.4-11.0)
[2020-04-10 15:32] LABS: AST(SGOT) 22 U/L (15-37); Alanine Aminotransfer ALT/SGPT 28 U/L (13-56); Albumin, Serum 3.7 g/dL (3.2-5.0); Alkaline Phosphatase 76 U/L (45-117); Anion Gap 6 (5-15); BUN 10 mg/dL (7-18); BUN/Creat Ratio 12.3 RATIO (10-20); Calcium,Total 9.2 mg/dL (8.5-10.1); Chloride 110 mmol/L (98-107); Creatinine, Serum 0.81 mg/dL (0.55-1.02); EST Glomerular Filtration Rate 77 mL/min (>60); Est Glom Filt Rate - Afr Amer 93 mL/min (>60); Globulin 3.7 g/dL (2.2-4.2); Glucose 84 mg/dL (74-106); Potassium 4.1 mmol/L (3.5-5.1); Protein, Total 7.4 g/dL (6.4-8.2); Sodium Level 141 mmol/L (136-145)
[2020-04-15 09:08] LABS: Age Gdln ACOG Testing 30-65 (.)
[2020-04-15 12:13] LABS: HPV APTIMA, High Risk Negative (Negative)
[2020-04-15 12:20] LABS: HPV Reflexed? YES, CHARGE PATIENT
== END ==
PROVIDERS: PCP Family Medicine; Visit Provider Family Medicine
DX: Z01.419 Encounter for gynecological examination (general) (routine) without abnormal findings (principal); I10 Essential (primary) hypertension
CPT/HCPCS: 36415; 80053; 85025; 87624; 88175; G0145

== ENCOUNTER → 2020-04-15 09:59 | Outpatient (CLI) | payer OTHER, SELFPAY ==
[2019-08-30 14:18] VITALS: BMI 36.0
--- NOTE | 2020-04-15 10:00 | US_ITS ---
STUDY: ULTRASOUND OF THE FEMALE PELVIS - LIMITED REASON FOR EXAM: Female, 59 years old SLIGHT MID PELVIC PAIN OCCASIONALLY X 1 YEAR -- TUBAL LIGATION 1982 TECHNIQUE: Transabdominal TECHNICAL QUALITY: Adequate. COMPARISON: None. FINDINGS: The uterus is anteverted and is in a midline position. The uterus measures 7.4 x 4.2 x 2.8 cm. Normal uterine cervix. The endometrium measures 4 mm in thickness, and is hyperechoic. There is no demonstrated endometrial mass. There is no demonstrated myometrial mass. The right ovary measures 2.4 cm x 1.6 cm x 1.3 cm. There is no right ovarian cyst or ovarian mass. There is no visualized right adnexal mass or complex lesion. There is normal arterial and normal venous vascularity. The left ovary measures 2.1 cm x 2.3 cm x 1.3 cm. There is no left ovarian cyst or ovarian mass. There is no visualized left adnexal mass or complex lesion. There is normal arterial and normal venous vascularity. There is no fluid in the cul-de-sac. US/Pelvic (Non ) IMPRESSION: Normal female pelvis. Electronically Signed: Hernando Roy MD at 14:42 EST , Service support ,
== END ==
PROVIDERS: PCP Family Medicine; Referring Provider Family Medicine; Visit Provider Family Medicine
DX: R10.2 Pelvic and perineal pain (principal)
CPT/HCPCS: 76856; 93976

== ENCOUNTER → 2020-10-12 06:33 | Outpatient (CLI) | payer OTHER, SELFPAY ==
[2019-08-30 14:18] VITALS: BMI 36.0
--- NOTE | 2020-10-12 06:48 | MRI_ITS ---
STUDY: MRI LEFT ANKLE WITHOUT CONTRAST REASON FOR EXAM: Female, 59 years old. PERONEAL TENDONITIS, C/O PAIN LATERAL FOOT TECHNIQUE: Standardized fat and water weighted pulse sequences were obtained in all 3 orthogonal planes. COMPARISON: None. FINDINGS: A 1.95 cm ganglion cyst or pocket of joint fluid is present at the lateral side of the talonavicular articulation. A small plantar calcaneal spur is present with mild to moderate thickening of the plantar fascia of the medial band attaching to the calcaneus in this region. Normal subcutis adipose space. Normal posterior tibialis tendon. Normal flexor digitorum longus tendon. Normal flexor hallucis longus tendon. Normal peroneus longus and brevis tendons. Normal tibialis anterior tendon. Normal extensor hallucis longus tendon. Normal extensor digitorum longus tendons. Normal Achilles tendon and teno-osseous insertion. Normal intrinsic muscles of the rearfoot. Normal distal tibiofibular syndesmotic ligamentous complex. There is scarring with mild thickening of the anterior talofibular ligament consistent with a remote sprain. Normal subtalar ligaments and sinus tarsi. Normal deltoid ligamentous complexes. Normal plantar calcaneonavicular (spring) ligament. Normal tibiotalar articulation. Normal talar dome. Normal subtalar articulations. Normal talonavicular articulation. Normal calcaneocuboid articulation. Normal navicular-cuneiform articulations. MRI/Lower Ext Joint Only (Routine) IMPRESSION: 1. A 1.95 cm ganglion cyst or pocket of joint fluid is present at the lateral side of the talonavicular articulation. 2. Small plantar calcaneal spur is present with mild to moderate thickening of the plantar fascia of the medial band attaching to the calcaneus in this region. 3. scarring with mild thickening of the anterior talofibular ligament consistent with a remote sprain Electronically Signed: Manjinder Alberto MD at 17:04 EDT , Service support ,
== END ==
PROVIDERS: PCP Family Medicine; Referring Provider Podiatrist Foot & Ankle Surgery; Visit Provider Podiatrist Foot & Ankle Surgery
DX: M76.72 Peroneal tendinitis, left leg (principal); M77.32 Calcaneal spur, left foot
CPT/HCPCS: 73721

== ENCOUNTER 2021-04-09 16:08 | Outpatient (CLI) | payer MEDICAID, SELFPAY ==
--- NOTE | 2021-04-09 16:45 | MRI_ITS ---
STUDY: MRI LEFT ANKLE WITHOUT CONTRAST REASON FOR EXAM: Female, 60 years old. LEFT ankle spontaneous rupture of peroneal tendon TECHNIQUE: Standardized fat and water weighted pulse sequences were obtained in all 3 orthogonal planes. COMPARISON: 10/12/2020 FINDINGS: Normal subcutis adipose space. Normal posterior tibialis tendon. Normal flexor digitorum longus tendon. Normal flexor hallucis longus tendon. Suspect a 5 mm os perineum with marrow edema and mild tenosynovitis of the distal peroneus longus tendon suggestive of painful os perineum syndrome. Normal tibialis anterior tendon. Normal extensor hallucis longus tendon. Normal extensor digitorum longus tendons. Normal Achilles tendon and teno-osseous insertion. There is a plantar fasciitis with plantar fascial thickening and fascial edema, with focal tear. Normal plantar calcaneal tubercles. Normal intrinsic muscles of the rearfoot. Normal distal tibiofibular syndesmotic ligamentous complex. Normal lateral ligamentous complex. Normal subtalar ligaments and sinus tarsi. Normal deltoid ligamentous complexes. Normal plantar calcaneonavicular (spring) ligament. Normal tibiotalar articulation. No change in 1.5 cm inferior extensor retinaculum stem ligament bursal cyst. Normal talar dome. Normal subtalar articulations. Normal talonavicular articulation. Normal calcaneocuboid articulation. Normal navicular-cuneiform articulations. MRI/Lower Ext Joint Only (Routine) IMPRESSION: 1. 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 2. No change in 1.5 cm inferior extensor retinaculum stem ligament bursal cyst. 3. Plantar fasciitis with tear. Electronically Signed: Mike Bingham MD at 9:50 EST ,
== END 2021-04-09 23:59 | disposition home or self-care (01) ==
LOC: MRI 16:09
PROVIDERS: PCP Family Medicine; Referring Provider Podiatrist Foot & Ankle Surgery; Visit Provider Podiatrist Foot & Ankle Surgery
DX: M66.372 Spontaneous rupture of flexor tendons, left ankle and foot (principal); M72.2 Plantar fascial fibromatosis
CPT/HCPCS: 73721

== ENCOUNTER 2021-04-27 11:48 | Outpatient (CLI) | payer MEDICAID, SELFPAY ==
--- NOTE | 2021-04-27 11:52 | BI_ITS ---
MAMMOGRAPHY - BILATERAL SCREENING REASON FOR EXAM: Female, 60 years old. Routine annual screening examination. PERTINENT HISTORY: Aunts with breast cancer. TECHNIQUE: Digital bilateral breast bo (3D mammographic acquisition) in the CC and MLO projections. 2-D mediolateral oblique (MLO) and craniocaudad (CC) views of both breasts were obtained. CAD: Full Field Digital Mammography with Computer Added Detection was performed. COMPARISON: Comparison is made with prior outside examination dated 01/22/2020. FINDINGS: Breast Composition: The breasts are heterogeneously dense, which may obscure small masses. There are no dominant masses or suspicious calcifications. Stable benign-appearing bilateral axillary lymph nodes. Stable 7.6 mm intramammary lymph node in the anterior upper lateral aspect of the right breast. No other significant abnormalities are identified. There has been no significant change since the prior study. BI/SCRN MAMM (CAD)W/BO BILAT IMPRESSION: Stable bilateral screening mammogram. Yearly follow-up mammogram recommended. (A) ASSESSMENT CATEGORY: BIRADS Category 2: Benign. A letter regarding these results will be sent to the patient by the facility within 30 days. Approximately 10% of breast cancers are not detected by mammography. A normal mammogram should not delay biopsy of a clinically suspicious abnormality. [id number] Electronically Signed: Hernando Roy MD at 12:47 EST ,
== END 2021-04-27 23:59 | disposition home or self-care (01) ==
LOC: OPBI 11:49
PROVIDERS: PCP Family Medicine; Visit Provider Family Medicine
DX: Z12.31 Encounter for screening mammogram for malignant neoplasm of breast (principal)
CPT/HCPCS: 77063; 77067

== ENCOUNTER 2022-02-22 10:00 | Outpatient (RCR) | payer MEDICAID, OTHER, SELFPAY ==
--- NOTE | 2022-01-20 14:56 | HP.PTEVAL_ITS ---
Patient's Visit Information LAY LYNN is a 61 year old F referred to Physical Therapy by Dr. Roni Loyd DO with a diagnosis of Right Hip Pain. Date of Evaluation: 01/20/22 Physical Therapist: Sheryl Baez DPT - Visit Plan Frequency: 2x /Week Duration: 4 Weeks Plan: 1x a week for 4 weeks-HEP due to high co-pay. HEP: TA contraction, SLS with TA contraction, bridge, posture, SLR, hip abd, clams and hip add - Subjective Patient reports that she went to see Dr. Boykin for pain in her right hip- he gave her some injections and then told her to come to PT. She has had pain for months just achy and then she started having pain in the groin- continues to get worse- insidious onset. She has pain on the greater troch- No radiating pain. Worst: 8/10 Agg: walking long distance, steps both up and down Best: 0/10 Eases: sitting. The injections did help. When she sits down the pain goes away quickly. Describe the pain as sharp- No N/T in the toes. She has always had back pain- has been to chiro for her back but no other tx. She did have x-rays of her hip. No loss or change in bowel/bladder. Sleep: disturbed- normally a side sleeper and wakes her up. 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 PMHx/Meds: no changes since saw 01/20/22 - Objective Posture: FH, RS- can correct but does not maintain. Gait: slight deviation- decrease stance on the right LE- mild increase in translation of the pelvis. HR/TR: able. SLS: 5 seconds with moderate pelvic translation. Stairs: acs/desc 8 recip with poor control with decent and uses UE for propulsion upwards. ROM: WFL does have discomfort with ER of the hip. Strength: Core: fair, Hip: 4/5 throughout, Knee: 5/5 Ankle: 5/5. Flex: HS: moderate Gastroc: moderate. Palpation: tender along greater troch and into the gluts - Special Tests L/S Slump test left side: Negative L/S Slump test right side: Negative L/S Left Straight Leg Raise: Negative L/S Right Straight Leg Raise: Negative R Hip Scour: Positive R Hip TIFFANIE - Intraarticular Pathology: Positive R Hip FADDIR - Labrum: Positive R Hip Trendelenberg - Glut Medius: Positive - Balance/Special Test Scores Lower Extremity Functional Score: 44 - Goals Goal 1:: Patient will be I with HEP and progression Goal Time Frame: 4-6 Weeks Goal 2:: Patient will asc/desc 8 recip with no pain and decreased pelvic translation Goal Time Frame: 4-6 Weeks Goal 3:: Patient will SLS for 30 without increased pelvic translation Goal Time Frame: 4-6 Weeks Goal 4:: Patient will report 80% improvement Goal Time Frame: 4-6 Weeks - Rehabilitation Potential Physical Therapy Diagnosis: Patient presents with hypomobility- she has decreased LE and core strength/stabilization, flex and muscular endurance leading to poor posture, increased pelvic translation and increased pain with ADL's. Rehabilitation Potential: Good - Anticipated Interventions Patient/Client Instruction: Educate patient on: Benefits of Fitness Program Therapeutic Exercise to Include: Strength training, Endurance training, Balance training, Coordination, Agility training, Body mechanics, Postural training, Flexibilty training, Gait and locomotor training, Neuromotor development, Dynamic Lumbar Stabilization, Scapular Strength/Stabilization For the Purpose of:: To improve muscle performance and motor function Thank you for the opportunity to evaluate your patient. For Medicare and Medicare HMO plans, please review the plan of care and approve it. It will need to be FAXED BACK to us at [phone] for Medicare purposes. For Medicare only, by signing this I certify the plan of care. Please let me know if there are questions or concerns regarding this plan of care. Physician Signature: ____Date:
--- NOTE | 2022-02-22 10:18 | HP.PTDCSUM ---
It has been my pleasure to treat LAY LYNN referred by Dr. Roni Loyd DO, with the diagnosis of Right Hip Pain for a total of 2 visit(s). Discharge Date: Please see the following information for a summary of their discharge status. Subjective: Patient reports that she is doing good and feeling good, she has no issues- she is back to all of her normal activities. Nothing that makes her feel that she needs to go back to the MD. Really cold in the barn. She is doing her her exercises. % Improvement: 100 Objective/Function: Posture: Fair throughout treatment session in standing and sitting Gait: no deviation noted- good bhavani and normal pelvic translation SLS: 15 seconds with normal pelvic translation. ROM: WFL does have discomfort with ER of the hip. Strength: Core: fair plus, Hip: 5/5 throughout, Knee: 5/5 Ankle: 5/5. Flex: HS: moderate Gastroc: moderate. Goal 1:: Patient will be I with HEP and progression Goal Progress: Goal Met Goal 2:: Patient will asc/desc 8 recip with no pain and decreased pelvic translation Goal Progress: Goal Met Goal 3:: Patient will SLS for 30 without increased pelvic translation Goal Progress: Progressing Goal 4:: Patient will report 80% improvement Goal Progress: Goal Met Plan: 02/22/21: Discharge to HEP- Gave blue Tband and educated to continue exercises to maintain neutral pelvis. IE:1x a week for 4 weeks-HEP due to high co-pay. HEP: TA contraction, SLS with TA contraction, bridge, posture, SLR, hip abd, clams and hip add If there are questions or concerns regarding this patient's physical therapy, please feel free to call me at [phone]. Thank you for the referral of this patient. Sincerely, Sheryl Baez, DPT Balance/Gait/Functional tests - Balance/Special Test Scores Lower Extremity Functional Score: 67
== END 2022-02-22 10:40 | disposition home or self-care (01) ==
LOC: PT 10:00
PROVIDERS: PCP Family Medicine; Referring Provider Orthopaedic Surgery; Visit Provider Orthopaedic Surgery
DX: M70.61 Trochanteric bursitis, right hip (principal)
CPT/HCPCS: 97164

== ENCOUNTER → 2022-04-28 | Outpatient (CLI) | payer OTHER, SELFPAY ==
--- NOTE | 2022-04-28 11:48 | BI_ITS ---
MAMMOGRAPHY - BILATERAL SCREENING REASON FOR EXAM: Female, 61 years old. Routine annual screening examination. PERTINENT HISTORY: Aunts with breast cancer. TECHNIQUE: Digital bilateral breast bo (3D mammographic acquisition) in the CC and MLO projections. 2-D mediolateral oblique (MLO) and craniocaudad (CC) views of both breasts were obtained. CAD: Full Field Digital Mammography with Computer Added Detection was performed. COMPARISON: Comparison is made with prior study of April 27, 2021. FINDINGS: Breast Composition: The breasts are heterogeneously dense, which may obscure small masses. There are no dominant masses or suspicious calcifications. Stable benign-appearing bilateral axillary lymph nodes. Stable 7.6 mm intramammary lymph node in the anterior upper lateral aspect of the right breast. No other significant abnormalities are identified. There has been no significant change since the prior study. BI/SCRN MAMM (CAD)W/BO BILAT IMPRESSION: Stable bilateral screening mammogram. Yearly follow-up mammogram recommended. (A) ASSESSMENT CATEGORY: BIRADS Category 2: Benign. A letter regarding these results will be sent to the patient by the facility within 30 days. Approximately 10% of breast cancers are not detected by mammography. A normal mammogram should not delay biopsy of a clinically suspicious abnormality. [id number] Electronically Signed: Hernando Roy MD at 12:48 EST ,
== END | disposition home or self-care (01) ==
LOC: OPBI 11:46
PROVIDERS: PCP Family Medicine; Visit Provider Family Medicine
DX: Z12.31 Encounter for screening mammogram for malignant neoplasm of breast (principal)
CPT/HCPCS: 77063; 77067

== ENCOUNTER → 2022-05-05 | Outpatient (CLI) | payer OTHER, SELFPAY ==
[2022-05-05 15:30] LABS: Absolute Neutrophil Count 4.9 X10^3/uL (2.0-7.7); Basophil# 0.04 X10^3/uL; Basophil% 0.6 % (0-1); Eosinophil# 0.04 X10^3/uL; Eosinophils% 0.6 % (0-5); Hematocrit 41.8 % (37-47); Hemoglobin 13.6 g/dL (12.0-15.0); Lymphocyte % 20.7 % (19-41); Mean Corp Hgb Conc 32.5 g/dL (32-36); Mean Corpuscular Hgb 30.4 pg (27.0-32.0); Mean Corpuscular Volume 93.5 fL (81-99); Mean Platelet Vol. 10.6 fl (6.2-12.0); Monocyte# 0.37 X10^3/uL; Monocyte% 5.5 % (0-10); NRBC Flagged by Analyzer 0 % (0-5); Neutrophil # 4.89 X10^3/uL (2.7-7.7); Neutrophil % 72.3 % (47-70); Platelet Count 216 K/mm3 (150-450); RBC Distribution Width CV 13.9 % (11.6-14.6); RBC Distribution Width SD 47.8 fl (35.1-43.9); Red Blood Count 4.47 M/mm3 (4.2-5.4); White Blood Count 6.8 K/mm3 (4.4-11.0)
[2022-05-05 15:46] LABS: ALB/GLOB Ratio 1.2 RATIO (0.9-2.4); AST(SGOT) 26 U/L (15-37); Alanine Aminotransfer ALT/SGPT 26 U/L (13-56); Albumin, Serum 3.9 g/dL (3.2-5.0); Alkaline Phosphatase 60 U/L (45-117); Anion Gap 7 (5-15); BUN 17 mg/dL (7-18); BUN/Creat Ratio 19.3 RATIO (10-20); Calcium,Total 9.2 mg/dL (8.5-10.1); Chloride 107 mmol/L (98-107); Creatinine, Serum 0.88 mg/dL (0.55-1.02); EST Glomerular Filtration Rate 69 mL/min (>60); Est Glom Filt Rate - Afr Amer 84 mL/min (>60); GGTP 22 U/L (5-55); Globulin 3.3 g/dL (2.2-4.2); Glucose 92 mg/dL (74-106); Potassium 4.4 mmol/L (3.5-5.1); Protein, Total 7.2 g/dL (6.4-8.2); Sodium Level 139 mmol/L (136-145)
== END | disposition home or self-care (01) ==
LOC: BFHLAB 11:36
PROVIDERS: PCP Family Medicine; Referring Provider Family Medicine; Visit Provider Family Medicine
DX: R10.13 Epigastric pain (principal)
CPT/HCPCS: 36415; 80053; 82977; 85025

== ENCOUNTER → 2022-06-01 | Outpatient (CLI) | payer OTHER, SELFPAY ==
--- NOTE | 2022-06-01 09:15 | MRI_ITS ---
STUDY: MRI RIGHT HIP REASON FOR EXAM: Female, 61 years old. Right hip pain for 3 months. No known injury. TECHNIQUE: Standardized fat and water weighted pulse sequences were obtained in all 3 orthogonal planes. COMPARISON: Pelvis and hip x-rays dated January 19, 2022. FINDINGS: Mild arthrosis of both hips with small joint effusions and small subchondral cysts (coronal series 4 images 8-17). Normal gluteus minimus, medius and iliopsoas tendons and distal insertions. Bilateral greater trochanteric bursitis, right greater than left (coronal series 4 images 14-19, axial series 5 images 22-28). Normal superior and inferior pubic rami. Normal pubic symphysis. Normal ischial tuberosity. Normal origin of the hamstring tendons. Normal visualized iliac wing, sacroiliac joint, and sacral ala. Normal visualized soft tissue structures of the pelvis. MRI/Lower Ext Joint Only (Routine) IMPRESSION: Bilateral greater trochanteric bursitis, right greater than left. Mild arthrosis of both hips with small joint effusions and subchondral cysts. No other abnormality. Electronically Signed: Greg Beckman, at 11:49 EDT ,
== END | disposition home or self-care (01) ==
LOC: MRI 08:40
PROVIDERS: PCP Family Medicine; Referring Provider Orthopaedic Surgery; Visit Provider Orthopaedic Surgery
DX: M16.0 Bilateral primary osteoarthritis of hip (principal); M70.71 Other bursitis of hip, right hip; M70.72 Other bursitis of hip, left hip
CPT/HCPCS: 73721

== ENCOUNTER → 2024-10-18 | Outpatient (CLI) | payer OTHER, SELFPAY ==
[2024-10-23 11:08] LABS: Age Gdln ACOG Testing 30-65 (.); HPV APTIMA, High Risk Negative (Negative)
== END | disposition home or self-care (01) ==
LOC: LABSPEC 11:01
PROVIDERS: PCP Family Medicine; Referring Provider Family Medicine; Visit Provider Family Medicine
DX: Z12.4 Encounter for screening for malignant neoplasm of cervix (principal)
CPT/HCPCS: 87624; 88175; G0145

== ENCOUNTER → 2024-10-30 | Outpatient (CLI) | payer OTHER, SELFPAY ==
--- NOTE | 2024-10-30 10:32 | BI_ITS ---
EXAM: SCRN MAMM (CAD)W/BO BILAT DATE: 10/30/2024 CLINICAL HISTORY: F, Age 63 y/o , SCREENING Aunts with breast cancer. TECHNIQUE: Procedure Code: [id number] Modality: MG Procedure: SCRN MAMM (CAD)W/BO BILAT COMPARISON: Prior exam(s) dated April 28, 2022.. FINDINGS: TISSUE DENSITY: The breasts are heterogeneously dense, which may obscure small masses. Bilateral Breast Mammographic Findings: No significant masses, calcifications or other abnormalities are identified. Stable 7 mm intramammary lymph node in the anterior upper lateral aspect of the right breast. Stable bilateral fat containing axillary lymph nodes. No suspicious masses, areas of developing architectural distortion, or suspicious calcifications. There has been no significant interval change. BI/SCRN MAMM (CAD)W/BO BILAT IMPRESSION: Stable bilateral screening mammogram. OVERALL FINAL ASSESSMENT BI-RADS 2: BENIGN RECOMMENDATION: Routine annual follow-up in 1 Year A letter with findings and recommendations will be mailed to the patient. Reading Location: [facility]
== END | disposition home or self-care (01) ==
LOC: OPBI 10:31
PROVIDERS: PCP Family Medicine; Referring Provider Family Medicine; Visit Provider Family Medicine
DX: Z12.31 Encounter for screening mammogram for malignant neoplasm of breast (principal)
CPT/HCPCS: 77063; 77067

== ENCOUNTER → 2024-11-21 | Outpatient (CLI) | payer OTHER, SELFPAY ==
[2024-11-21 08:12] LABS: Hematocrit 40.5 % (37-47); Hemoglobin 13.4 g/dL (12.0-15.0); Immature Granulocytes Count 0.020 X10^3/uL (0.0-0.0); Mean Corp Hgb Conc 33.1 g/dL (32-36); Mean Corpuscular Volume 91.4 fL (81-99); Mean Platelet Vol. 10.2 fl (6.2-12.0); NRBC Flagged by Analyzer 0 % (0-5); Platelet Count 225 K/mm3 (150-450); RBC Distribution Width CV 14.0 % (11.6-14.6); RBC Distribution Width SD 47.1 fl (35.1-43.9); Red Blood Count 4.43 M/mm3 (4.2-5.4); White Blood Count 5.6 K/mm3 (4.4-11.0)
[2024-11-21 09:17] LABS: AST(SGOT) 23 U/L (<=31); Alanine Aminotransfer ALT/SGPT 12 U/L (<=34); Albumin, Serum 4.0 g/dL (3.4-4.8); Alkaline Phosphatase 58 U/L (35-104); Anion Gap 13 (5-15); BUN 16 mg/dL (4-19); BUN/Creat Ratio 22.6 RATIO (10-20); Calcium,Total 8.9 mg/dL (7.6-11.0); Carbon Dioxide 21.6 mmol/L (21.0-32.0); Chloride 108 mmol/L (98-108); Cholesterol 172 mg/dL (<=200); Globulin 2.6 g/dL (2.2-4.2); Glucose 97 mg/dL (70-99); Low Density Lipoprotein Calc. 88 mg/dL; Potassium 4.1 mmol/L (3.3-5.1); Triglycerides 110 mg/dL; Very Low Density Lipoprotein 22 mg/dL (5-40); Vitamin D,25 Hydroxy 25.7 ng/mL (30-100); cholesterol:hdl ratio screen 2.78
== END | disposition home or self-care (01) ==
LOC: LAB 07:11
PROVIDERS: PCP Family Medicine; Referring Provider Family Medicine; Visit Provider Family Medicine
DX: Z00.00 Encounter for general adult medical examination without abnormal findings (principal); I10 Essential (primary) hypertension; R53.83 Other fatigue
CPT/HCPCS: 36415; 80053; 80061; 82306; 84443; 85025